=== PATIENT | female | born 1975 | race Caucasian/White ===

== ENCOUNTER → 2025-02-02 07:38 | Outpatient (REF) | payer OTHER, SELFPAY | LOC: EMG 07:38 | PROVIDERS: ATTENDING PHYSICIAN Orthopaedic Surgery Orthopaedic Surgery of the Spine | DX: M47.12 Other spondylosis with myelopathy, cervical region (principal) | CPT/HCPCS: 95886; 95911 ==

== ENCOUNTER → 2025-02-12 06:42 | Outpatient (REF) | payer OTHER, SELFPAY | LOC: MRI 06:42 | PROVIDERS: ATTENDING PHYSICIAN Orthopaedic Surgery Orthopaedic Surgery of the Spine; FAMILY PHYSICIAN Internal Medicine | DX: M47.12 Other spondylosis with myelopathy, cervical region (principal) | CPT/HCPCS: 72141 ==